=== PATIENT | female | born 1965 | race Caucasian/White ===

== ENCOUNTER 2023-05-23 13:07 | Outpatient (AMB) | payer MEDICARE, MEDICAID, SELFPAY ==
--- NOTE | 2023-05-23 13:46 | A.SPINEOV_ITS ---
Intake Intake Visit Reasons: Hx of lumbar fusion Intake Note: Ms. Anguiano is here today c/o Lower and mid back pain. Focus Puller Required: No Allergies codeine Allergy (Unknown, Verified 05/23/23 13:49) Sick to her stomach tramadol Allergy (Unknown, Verified 05/23/23 13:49) Sick to her stomach Assessment & Plan Assessment & Plan (1) Back pain: Code(s): M54.9 - Dorsalgia, unspecified Plan: Dear Dr Gonzalez, Thank you for referring Mrs Anguiano to our office today. This is a 58-year-old female who has a complicated history with her spine dating back to 2019 when she underwent what sounds like an L2-5 posterior lateral fusion with pedicle screw (no interbody cage), with Dr. Rowland in 2019 at [facility] for what sounds like intractable back pain and radicular symptoms. She underwent that procedure and unfortunately over time during recovery she noticed a progressive worsening of the back pain and a pain into her right anterior thigh stopping at about her knee. Dr. Rowland did not feel there was anything more he could offer, so he sent the patient to Dr. Sanz at [facility] who is an orthopedic spine doctor. 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 The patient reports that after the 2nd surgery, she had a horrific recovery right after surgery. She was screaming in agony for days and ultimately had to be sent to the ICU put on a ketamine drip and then ultimately transition to narcotics. Basically from the time of that surgery on forward until today the patient has had an unrelenting amount of back pain and discomfort. She also continues to have the radiculopathy down her right leg. The orthopedic surgeon who operated on her an extended her fusion ultimately left the area shortly after the surgery so she never had a chance to get an answer as to why she had this much pain. At this point she tells me that every day is 1 unrelenting and progressive reaves with trying to deal with the amount of back pain that she has. It starts in her lower sacral region and runs paraspinal bilaterally up to her lower thoracic level. Again she also has the right anterior thigh radiculopathy going into her knee. She also battles with chronic neck pain as well. She is on oxycodone 30 mg multiple times a day and that seems to help a little. Things like anti-inflammatories and Tylenol have absolutely no effect. She has tried all the physical therapy, spinal cord stimulator trials and cortisone injections etc. with no relief. She was sent today to see us for evaluation to see if there was something else that could be done to try to help her discomfort and pain. PMH: She had a stroke last year, for reasons that are clear, but has been on Keppra since the stroke because apparently she had a seizure at that time. History of hypertension, fibromyalgia, possibly something with her thyroid is going on as well she reports. History of 3 C sections, ear operations, tonsillectomy Social hx: She smokes about 3-5 cigarettes a day, she does not use marijuana because she has on a pain contract, no alcohol or other recreational drugs Medications: Amlodipine, potassium, Keppra, Klonopin, amlodipine, oxycodone, Adderall, atorvastatin, losartan, low-dose baby aspirin, vitamin-D Allergies: Tramadol and codeine give her nausea vomiting Physical exam: No acute distress but very uncomfortable with standing, she has a large midline incision extending from about the midthoracic level down to the upper sacrum. It is well healed. She has tenderness over this area. She has good strength of bilateral upper lower extremities with the exception of some mild iliopsoas weakness but I believe this to be pain related. Normal to slightly depressed reflexes in the upper extremities, brisk reflexes in lower extremities with clonus in her left ankle. Imaging review: She has multiple images to review today. These are all done at [facility]. The 1st is a lumbar and thoracic MRI with and without gadolinium done in September of 2022. This shows extensive postsurgical changes from T12-L5 with excellent decompression of the conus, and spinal canal extending down to L5 as well as all of the neural foramina are patent. The hardware looks like it is in reasonable position. The thoracic spine MRI is unremarkable. I do not have official reports on these 2 studies. There is no signs of instability with flexion-extension x-rays which I did here in the office today. There are no fractures of the hardware and there appears to be bony overgrowth seen on the x-rays around the pedicle screws suggesting fusion has taken place here. There is also a cervical MRI at [facility] from April 2023 showing degenerative disc disease from C4-C7. There is no spinal cord compression and only some mild to moderate foraminal stenosis at C5-6. Impression: 58-year-old female who presents after 2 serial spinal fusions done in 2018 and 2020, neither of which gave her any lasting pain relief and only amplified her situation and made it even worse. She is absolutely miserable on a day-to-day basis with the amount of pain she is in. She is very frightened about the fact that this is the way she is going to have to live the rest of her life. At this time, based on her MRI and the x-rays I did here in the office it appears as though all the postsurgical instrumentation is in good position and nerves are adequately decompressed. We talked about the fact that surgery for back pain, specifically spinal fusion is well known to only be successful 60-70% of the time and that it is a risk of surgery that the pain can get worse postoperatively. Unfortunately she seems to be someone who is in this group. I do not think there is anything more we are going to be able to do for her spine in terms of surgery. She was curious about taking all the hardware out, but I told her that with the evidence that it appears that there is fusion around the pedicle screws, this would be an extensive operation, and this could in fact make her worse. It is also well known that patients who undergo multiple spinal procedures, generally have less affect from the surgery in terms of pain relief with each successive surgery. Given how poorly the 1st 2 went, I would suspect that a 3rd surgery would only make things worse. I would like to order new MRIs of her lumbar and thoracic just to double check on the hyperreflexia that I am seeing on her exam. This can be a sign of myelopathy. She tells me that she has had this since her 1st surgery, but no one has ever been able to explain why. I did not see any evidence of spinal cord compression on her thoracic imaging from last year and I do not see any on her current cervical MRI either. She was curious about the degenerative discs in her neck and her neck pain, but I reiterated to her that it would likely be a similar effect that she had for her back surgery for degenerative discs in that it would likely only give her amplified pain. The patient would like to come back and review her new MRIs when they are completed so we will arrange that follow-up once the studies are done. She would prefer those MRIs to be done at [facility] as it is closer to her home. Thank you for allowing us to care for your patient. The total time spent with this visit with this patient was 70 minutes reviewing history, physical exam, cervical, thoracic and lumbar imaging review, and implementation of treatment plan or further diagnostic testing Jassi Kingston MD,PhD [facility] (2) Neck pain: Code(s): M54.2 - Cervicalgia Plan see above Orders: Orders XR lumbar spine 4V min Today M54.9 - Dorsalgia, unspecified XR cervical spine 4V Today M54.2 - Cervicalgia MR thoracic spine wo con Today M54.9 - Dorsalgia, unspecified MR lumbar spine wo con Today M54.9 - Dorsalgia, unspecified Coding Level of Care Code New Pt Level 5 (22447) Diagnoses Back pain M54.9 Neck pain M54.2
== END 2023-05-23 15:50 | disposition home or self-care (01) ==
PROVIDERS: PCP Family Medicine; Referring Provider Family Medicine; Visit Provider Physician Assistant
DX: M54.9 Dorsalgia, unspecified (principal); M54.2 Cervicalgia
CPT/HCPCS: 99205

== ENCOUNTER 2023-05-23 13:07 | Outpatient (REF) | payer MEDICARE, MEDICAID, SELFPAY ==
--- NOTE | ~2023-05-23 | XR_ITS ---
EXAMINATION: XR CERVICAL SPINE XR LUMBAR SPINE CLINICAL INFORMATION: Back pain, neck pain. COMPARISON: None available. TECHNIQUE: AP, lateral neutral, flexion and extension views each of the cervical and of the lumbar spine. FINDINGS: LUMBAR SPINE: Levoscoliosis of the lumbar spine. Atherosclerotic aortoiliac calcifications. Posterior fixation hardware with bilateral posterior rods and screws fixation spanning T12-L5 levels. Hardware appears intact. Multilevel degenerative changes with multilevel loss of disc space height in the lumbar spine. Motion artifact on lateral flexion view. Degenerative changes in the imaged lower thoracic spine. Minimal grade 1 retrolisthesis of T12 on L1, L1 on L2, and L2 on L3. CERVICAL SPINE: Advanced degenerative changes with loss of disc space height and hypertrophic change at C4-C5, C5-C6, and C6-C7. Straightening of the normal cervical lordosis. XR/XR cervical spine 4V IMPRESSION: 1. Posterior fixation hardware with bilateral posterior rods and screws fixation spanning T12-L5 levels. Hardware appears intact. 2. Multilevel degenerative changes in the lumbar spine. 3. Advanced degenerative changes at C4-C5, C5-C6 and C6-C7.
--- NOTE | ~2023-05-23 | XR_ITS ---
EXAMINATION: XR CERVICAL SPINE XR LUMBAR SPINE CLINICAL INFORMATION: Back pain, neck pain. COMPARISON: None available. TECHNIQUE: AP, lateral neutral, flexion and extension views each of the cervical and of the lumbar spine. FINDINGS: LUMBAR SPINE: Levoscoliosis of the lumbar spine. Atherosclerotic aortoiliac calcifications. Posterior fixation hardware with bilateral posterior rods and screws fixation spanning T12-L5 levels. Hardware appears intact. Multilevel degenerative changes with multilevel loss of disc space height in the lumbar spine. Motion artifact on lateral flexion view. Degenerative changes in the imaged lower thoracic spine. Minimal grade 1 retrolisthesis of T12 on L1, L1 on L2, and L2 on L3. CERVICAL SPINE: Advanced degenerative changes with loss of disc space height and hypertrophic change at C4-C5, C5-C6, and C6-C7. Straightening of the normal cervical lordosis. XR/XR lumbar spine 4V min IMPRESSION: 1. Posterior fixation hardware with bilateral posterior rods and screws fixation spanning T12-L5 levels. Hardware appears intact. 2. Multilevel degenerative changes in the lumbar spine. 3. Advanced degenerative changes at C4-C5, C5-C6 and C6-C7.
== END 2023-05-23 13:08 | disposition home or self-care (01) ==
LOC: HO.HOSX 13:07
PROVIDERS: PCP Family Medicine; Referring Provider Family Medicine; Visit Provider Physician Assistant
DX: M54.9 Dorsalgia, unspecified (principal); M54.2 Cervicalgia
CPT/HCPCS: 72050; 72110; 99202